=== PATIENT | male | born 1955 | race Caucasian/White ===

== ENCOUNTER 2018-04-21 11:50 | Inpatient (IN) | payer OTHER ==
[~2018-04-21] VITALS: Ht 172.7 cm; Wt 111.2 kg
[2018-04-21] MEDS ORDERED: METO50TA82 PO (12:55)
[2018-04-21] MEDS ORDERED: ASPI-621 PO (12:55)
[2018-04-21] MEDS ORDERED: BUPR150T73 PO (12:55)
[2018-04-21] MEDS ORDERED: OMEP-110 PO (12:55)
[2018-04-21 14:08] VITALS: BP 104/63
[2018-04-21] MEDS ORDERED: ONDANSETRON 2MG/ML, 2ML IVP PRN (14:30)
[2018-04-21] MEDS ORDERED: morphine SULFATE 10 MG/ML, 1ML IV PRN (14:30)
[2018-04-21] MEDS ORDERED: ASPIRIN 81 MG TABLET EC PO ONE (14:30)
[2018-04-21] MEDS ORDERED: NITROGLYCERIN 0.4 MG/SPRAY SL PRN (14:30)
[2018-04-21] MEDS ORDERED: ZOLPIDEM 5MG TABLET PO PRN (14:30)
[2018-04-21] MEDS ORDERED: ACETAMINOPHEN 325 MG TABLET PO PRN (14:30)
[2018-04-21] MEDS ORDERED: MIDAZOLAM 1 MG/ML, 5ML ONE (14:40)
[2018-04-21] MEDS ORDERED: TICAGRELOR 90 MG TABLET ONE (14:40)
[2018-04-21] MEDS ORDERED: FENTANYL PF 100 MCG/2ML ONE (14:40)
[2018-04-21] MEDS ORDERED: HEPARIN 1,000 UNITS/ML, 10ML ONE (14:41)
[2018-04-21] MEDS ORDERED: LIDOCAINE-MPF 2% ,5ML ONE (14:41)
[2018-04-21] MEDS ORDERED: VERAPAMIL 2.5 MG/ML, 2ML ONE (14:41)
[2018-04-21] MEDS ORDERED: BIVALIRUDIN 250 MG ONE (14:41)
[2018-04-21 15:50] VITALS: BP 100/69
[2018-04-21] MEDS: OMEPRAZOLE 20 MG CAPSULE.DR PO SCH (17:00)
[2018-04-21 18:53] VITALS: BP 102/69
[2018-04-21] MEDS: SODIUM CHLORIDE FLUSH 10ML SYR IVF SCH (20:40)
[2018-04-22 01:25] VITALS: BP 98/65
[2018-04-22 05:53] LABS: CHLORIDE 107 mmol/L (98-107)
[2018-04-22 05:57] LABS: ANION GAP 9 mmol/L (5-15); CALCIUM 8.3 mg/dL (8.5-10.1); CREATININE 1.09 mg/dL (0.7-1.3)
[2018-04-22 07:32] VITALS: BP 116/82
[2018-04-22] MEDS: OMEPRAZOLE 20 MG CAPSULE.DR PO SCH (07:44)
[2018-04-22] MEDS: SODIUM CHLORIDE FLUSH 10ML SYR IVF SCH (07:44)
[2018-04-22] MEDS ORDERED: METO25TA35 PO (12:56)
[2018-04-22] MEDS ORDERED: LISI-167 PO (12:56)
[2018-04-22] MEDS ORDERED: ATOR10TA9 PO (12:56)
[2018-04-22] MEDS ORDERED: CLOP75TA52 PO (12:56)
[2018-04-22 13:11] VITALS: BP 103/79
== END 2018-04-22 13:56 | disposition home or self-care (01) | DRG 281 ==
LOC: 5SO 12:33
PROVIDERS: ADMIT Internal Medicine Cardiovascular Disease; ATTEND Internal Medicine Cardiovascular Disease
PROC: 4A023N7 Measurement of Cardiac Sampling and Pressure, Left Heart, Percutaneous Approach (ICD-10-PCS; principal; 2018-04-21)
PROC: B2111ZZ Fluoroscopy of Multiple Coronary Arteries using Low Osmolar Contrast (ICD-10-PCS; 2018-04-21)
PROC: B2151ZZ Fluoroscopy of Left Heart using Low Osmolar Contrast (ICD-10-PCS; 2018-04-21)
DX: I21.4 Non-ST elevation (NSTEMI) myocardial infarction (principal); I42.9 Cardiomyopathy, unspecified; Q21.1 Atrial septal defect; E66.9 Obesity, unspecified; E78.5 Hyperlipidemia, unspecified; G47.30 Sleep apnea, unspecified; I10 Essential (primary) hypertension; I25.10 Atherosclerotic heart disease of native coronary artery without angina pectoris; I34.0 Nonrheumatic mitral (valve) insufficiency; I48.0 Paroxysmal atrial fibrillation; K21.9 Gastro-esophageal reflux disease without esophagitis; Z79.82 Long term (current) use of aspirin; Z68.37 Body mass index [BMI] 37.0-37.9, adult; Z79.899 Other long term (current) drug therapy
CPT/HCPCS: 36415; 80048; 84484; 93306; 93458; 99156; C1769; C1894; J0583; J1644; J2250; J3010; J3490; Q9967